=== PATIENT | male | born 1990 | race Caucasian/White ===

== ENCOUNTER 2020-08-24 14:03 | Emergency (ER) | payer MEDICAID ==
[~2020-08-24] VITALS: Ht 185.4 cm; Wt 80.0 kg
[~2020-08-24 14:03] MED LIST: CLIN150C2 PO; HYDR1TAB PO; IBUP-812 PO; LIDO20SO16 PO
[2020-08-24 14:23] VITALS: BP 122/77
--- NOTE | 2020-08-24 16:24 | NUR ---
NARDA Fernandez at bedside.
[2020-08-24] MEDS ORDERED: SULF1TAB49 PO (16:38)
[2020-08-24] MEDS ORDERED: LACT1CAP74 PO (16:38)
[2020-08-24] MEDS ORDERED: CEPH250T PO (16:38)
== END 2020-08-24 16:58 | disposition home or self-care (01) ==
LOC: ER 14:03
DX: A49.02 Methicillin resistant Staphylococcus aureus infection, unspecified site (principal); Z79.2 Long term (current) use of antibiotics; Z79.899 Other long term (current) drug therapy; Z56.0 Unemployment, unspecified
CPT/HCPCS: 99283

== ENCOUNTER 2021-08-07 21:07 | Emergency (ER) | payer SELFPAY ==
[~2021-08-07] VITALS: Ht 182.9 cm; Wt 72.7 kg
[~2021-08-07 21:07] MED LIST changes: +LACT1CAP74 PO
[2021-08-08 00:12] VITALS: BP 131/76
[2021-08-08] MEDS ORDERED: DOXYCYCLINE 100MG CAPSULE PO STA (01:07)
[2021-08-08] MEDS ORDERED: aspirin 325mg tablet PO ONE (01:10)
[2021-08-08] MEDS ORDERED: DOXY-1 PO (02:39)
[2021-08-08] MEDS ORDERED: rifampin 300mg capsule PO ONE (02:40)
[2021-08-08] MEDS ORDERED: rifampin 300mg capsule PO SCH (02:40)
== END 2021-08-08 03:05 | disposition home or self-care (01) ==
LOC: ER 21:07
DX: L03.116 Cellulitis of left lower limb (principal); I82.4Z2 Acute embolism and thrombosis of unspecified deep veins of left distal lower extremity; M79.605 Pain in left leg; F15.90 Other stimulant use, unspecified, uncomplicated; F11.90 Opioid use, unspecified, uncomplicated; Z56.0 Unemployment, unspecified; Z79.2 Long term (current) use of antibiotics; Z79.899 Other long term (current) drug therapy
CPT/HCPCS: 93971; 99284

== ENCOUNTER 2021-09-11 21:50 | Emergency (ER) | payer SELFPAY ==
[~2021-09-11] VITALS: Ht 182.9 cm; Wt 79.0 kg
[2021-09-11 22:04] VITALS: BP 135/78
[2021-09-11] MEDS ORDERED: SULF1TAB49 PO (23:34)
[2021-09-11] MEDS ORDERED: ondansetron 4mg rapidly disintigrating tab PO ONE (23:35)
[2021-09-11] MEDS ORDERED: sulfamethoxazole/trimethoprim DS (800/160mg) tablet PO ONE (23:35)
== END 2021-09-11 23:48 | disposition home or self-care (01) ==
LOC: ER 21:51
DX: Z76.0 Encounter for issue of repeat prescription (principal); L03.116 Cellulitis of left lower limb; L02.416 Cutaneous abscess of left lower limb; F15.90 Other stimulant use, unspecified, uncomplicated; F11.90 Opioid use, unspecified, uncomplicated; Z56.0 Unemployment, unspecified; Z79.2 Long term (current) use of antibiotics; Z79.899 Other long term (current) drug therapy
CPT/HCPCS: 99283

== ENCOUNTER 2021-09-15 23:14 | Emergency (ER) | payer OTHER ==
[~2021-09-15] VITALS: Ht 182.9 cm; Wt 79.5 kg
[~2021-09-15 23:14] MED LIST changes: +SULF1TAB49 PO
[2021-09-16] MEDS ORDERED: rifampin 300mg capsule PO ONE (00:40)
[2021-09-16] MEDS ORDERED: amox tr/potassium clavulanate 875/125mg TAB PO ONE (00:40)
[2021-09-16] MEDS ORDERED: rifampin 300mg capsule PO SCH (00:40)
[2021-09-16] MEDS ORDERED: AMOX-117 PO (00:42)
[2021-09-16 00:44] VITALS: BP 108/66
== END 2021-09-16 01:39 | disposition home or self-care (01) ==
LOC: ER 23:15
DX: L03.116 Cellulitis of left lower limb (principal); F17.200 Nicotine dependence, unspecified, uncomplicated; F15.90 Other stimulant use, unspecified, uncomplicated; F11.90 Opioid use, unspecified, uncomplicated; Z91.14 Patient's other noncompliance with medication regimen; Z59.00 Homelessness unspecified; Z79.2 Long term (current) use of antibiotics; Z79.899 Other long term (current) drug therapy
CPT/HCPCS: 99283

== ENCOUNTER 2021-10-13 22:43 | Emergency (ER) | payer OTHER ==
[~2021-10-13] VITALS: Ht 182.9 cm; Wt 85.0 kg
[~2021-10-13 22:43] MED LIST changes: -SULF1TAB49 PO
[2021-10-14] MEDS: LIDOcaine 1% W/epiNEPHrine 1:100,000 20ml vial SQ ONE (02:15)
[2021-10-14 02:16] LABS: BASOPHILS # (AUTO) 0.1 X10'3 (0-0.2); BASOPHILS % (AUTO) 0.6 % (0-1); EOSINOPHILS # (AUTO) 0.4 X10'3 (0-0.9); EOSINOPHILS % (AUTO) 3.9 % (0-6); HEMATOCRIT 38.1 % (42.0-52.0); HEMOGLOBIN 12.8 g/dl (14.0-17.9); LYMPHOCYTES % (AUTO) 19.8 % (21-51); MEAN CORPUSCULAR HGB CONC 33.6 g/dL (33.0-36.5); MEAN CORPUSCULAR VOLUME 86.4 FL (78-98); MEAN PLATELET VOLUME 7.5 FL (7.4-10.4); MONOCYTES # (AUTO) 1.3 X10'3 (0-0.9); MONOCYTES % (AUTO) 13.5 % (2-12); NEUTROPHILS # (AUTO) 6.2 X10'3 (1.8-7.7); NEUTROPHILS % (AUTO) 62.2 % (42-75); PLATELET COUNT 264 X10'3 (140-440); RED BLOOD COUNT 4.41 X10'6 (4.70-6.10); RED CELL DISTRIBUTION WIDTH 13.5 % (11.5-14.5); WHITE BLOOD COUNT 9.9 X10'3 (4.5-11.0)
[2021-10-14 02:40] LABS: ALANINE AMINOTRANSFERASE 37 U/L (12-78); ALBUMIN 3.7 G/DL (3.4-5.0); ALBUMIN/GLOBULIN RATIO 0.9 (1.1-1.5); ALKALINE PHOSPHATASE 101 IU/L (46-116); ANION GAP 4 (8-16); ASPARTATE AMINO TRANSFERASE 26 U/L (10-37); BILIRUBIN,TOTAL 0.3 MG/DL (0.1-1.0); BLOOD UREA NITROGEN 14 MG/DL (7-18); BUN/CREATININE RATIO 17.3 (5.4-32.0); CALCIUM 8.7 MG/DL (8.5-10.1); CHLORIDE 100 MMOL/L (99-107); CREATININE 0.81 MG/DL (0.60-1.10); GLUCOSE 91 MG/DL (70-104); POTASSIUM 3.9 MMOL/L (3.5-5.1); SODIUM 136 MMOL/L (135-145); TOTAL CARBON DIOXIDE 32.5 MMOL/L (24-32); TOTAL PROTEIN 7.7 G/DL (6.4-8.2); eGFR > 90 ML/MIN
--- NOTE | 2021-10-14 02:59 | NUR ---
LAC TRAY SET UP IN PT'S ROOM
[2021-10-14] MEDS ORDERED: SULF1TAB49 PO (05:29)
[2021-10-14] MEDS: sulfamethoxazole/trimethoprim DS (800/160mg) tablet PO ONE (05:29)
[2021-10-14 05:33] VITALS: BP 118/66
== END 2021-10-14 05:34 | disposition home or self-care (01) ==
LOC: ER 22:44
DX: L02.416 Cutaneous abscess of left lower limb (principal); L02.415 Cutaneous abscess of right lower limb; F19.10 Other psychoactive substance abuse, uncomplicated; F17.200 Nicotine dependence, unspecified, uncomplicated; F15.90 Other stimulant use, unspecified, uncomplicated; F11.90 Opioid use, unspecified, uncomplicated; Z56.0 Unemployment, unspecified; Z88.1 Allergy status to other antibiotic agents; Z79.899 Other long term (current) drug therapy
CPT/HCPCS: 36415; 80053; 83605; 84145; 85025; 87040; 99285